=== PATIENT | female | born 1980 | race Caucasian/White ===

== ENCOUNTER 2017-01-18 14:51 | Emergency (ER) | payer OTHER ==
[2017-01-18] MEDS ORDERED: IBUPROFEN 400 MG TABLET PO STA (15:47)
[2017-01-18] MEDS ORDERED: IBUPROFEN 400 MG TABLET PO ONE (16:01)
--- NOTE | 2017-01-18 16:23 | ED Physician Documentation ---
History of Present Illness - Stated complaint Stated Complaint: RT FOOT INJ - Chief complaint Chief Complaint: Ext Problem - Additonal information Additional information: hx from pt 36 f denies preg long standing arch pain, has seen podiatry, dx plantar fasciitis, has a night splint, wears arch supports, etc has a job that requires standing walking and running and has continued to work out on th foot so it hurts more and today was severe after sprinting would like xray to rout stress fx and note for work Review of Systems Musculoskeletal: reports: Pain with weight bearing PD PAST MEDICAL HISTORY - Past Medical History Past Medical History: Yes Cardiovascular: Hypertension Neuro: Headache/migraine - Past Surgical History Past Surgical History: Yes Ortho: Other - Present Medications Home Medications: Ambulatory Orders Medication Instructions Recorded Confirmed Citalopram [CeleXA] 10 mg PO ONCE 01/18/17 01/18/17 Metoprolol Tartrate 50 mg PO DAILY 01/18/17 01/18/17 diltiaZEM [Cardizem] 30 mg PO ONCE 01/18/17 01/18/17 - Allergies Allergies/Adverse Reactions: Allergies Allergy/AdvReac Type Severity Reaction Status Date / Time No Known Drug Allergies Allergy Verified 01/18/17 15:11 - Social History Does the pt smoke?: No Smoking Status: Former smoker Does the pt drink ETOH?: Yes ETOH Use: Beer Does the pt have substance abuse?: No - Immunizations Immunizations are current?: Yes - POLST Patient has POLST: No PD ED PE NORMAL - Vitals Vital signs reviewed: Yes - Extremities Extremities: Other (R foot s deformity, no TTP of MT dorsally, heel NT, severe TTP of arch, no warmth redness etc, MSV intact) Results - Vitals Vitals: Vital Signs - 24 hr 01/18/17 15:09 Temperature 36.8 C Heart Rate 90 Respiratory 18 Rate Blood Pressure 170/103 H O2 Saturation 98 Oxygen O2 Source Room air - Rads (name of study) foot Radiology: See rad report (neg) Departure - Departure Disposition: 01 Home, Self Care Clinical Impression: Plantar fasciitis Condition: Good Instructions: ED Plantar Fasciitis Comments: The xray was fine - no fracture - it is possible to have a stress fracture that cannot be seen on xray though I have written a note for work. 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
--- NOTE | 2017-01-18 16:29 | XRAY Preliminary Report ---
Exam: XR FOOT 3 VIEW RT IMPRESSION: Normal foot radiography. [facility] SITE ID: [id number]
--- NOTE | 2017-01-18 16:31 | XRAY Report ---
EXAM: RIGHT FOOT RADIOGRAPHY EXAM DATE: 01/18/2017 04:11 PM. CLINICAL HISTORY: Right foot pain with walking. COMPARISON: 04/29/2010. TECHNIQUE: 3 views. FINDINGS: Bones: Normal. No fractures or bone lesions. Joints: Normal. No subluxations. Soft Tissues: Normal. No soft tissue swelling. IMPRESSION: Normal foot radiography. [facility] Referring Provider Line: [phone] SITE ID: [id number]
[2017-01-18 16:49] VITALS: BP 140/96
== END 2017-01-18 16:48 | disposition home or self-care (01) ==
LOC: ED 14:51
DX: M72.2 Plantar fascial fibromatosis (principal); I10 Essential (primary) hypertension; Z87.891 Personal history of nicotine dependence
CPT/HCPCS: 73630; 99282; 99283; A9270